=== PATIENT | female | born 1965 | race Two or more races ===

== ENCOUNTER → 2017-08-21 | Outpatient (CLI) | payer OTHER ==
[~2017-08-21] VITALS: Ht 152.4 cm; Wt 63.5 kg
[~2017-08-21] MED LIST: ACIDOPHILUS1 EAC3 PO; AMOX1TAB12 PO; CIPRO500 MG PO; CIPRO750 MG PO; DESPEC-DM TABL1 EAC1 PO; GILTUSS TR TAB1 EACH PO; NABUMETONE750 MG PO; TRAMADOL HCL50 MG PO; TRIAMCINOLONE A15 G1 TP; ZITHROMAX TRI-500 MG PO; ZYRTEC10 MG PO
== END | disposition home or self-care (01) ==
LOC: PPHC 09:24
DX: B34.9 Viral infection, unspecified (principal)

== ENCOUNTER → 2017-08-27 | Emergency (ER) | payer OTHER ==
[~2017-08-27] VITALS: Ht 152.4 cm; Wt 63.5 kg
== END | disposition home or self-care (01) ==
LOC: ER 18:35
DX: J32.0 Chronic maxillary sinusitis (principal); J06.9 Acute upper respiratory infection, unspecified

== ENCOUNTER 2018-08-22 07:25 | Outpatient (CLI) | payer OTHER | END 2018-08-22 07:32 | disposition home or self-care (01) | LOC: LAB 07:25 | DX: R51 Headache (principal); R42 Dizziness and giddiness ==

== ENCOUNTER 2018-08-27 08:00 | Outpatient (CLI) | payer OTHER | END 2018-08-27 08:20 | disposition home or self-care (01) | LOC: RX STUDY 08:00 | DX: M54.89 Other dorsalgia (principal); M25.562 Pain in left knee ==

== ENCOUNTER 2018-09-09 14:28 | Outpatient (CLI) | payer OTHER | END 2018-09-09 14:38 | disposition home or self-care (01) | LOC: MAMO-SONO 14:28 | DX: N64.4 Mastodynia (principal); Z12.31 Encounter for screening mammogram for malignant neoplasm of breast ==

== ENCOUNTER 2019-02-12 14:11 | Emergency (ER) | payer OTHER ==
[~2019-02-12] VITALS: Ht 152.4 cm; Wt 68.0 kg
[2019-02-12] MEDS ORDERED: KETO10TA2 PO (17:27)
[2019-02-12] MEDS ORDERED: ORPHENADRINE C100 MG PO (17:27)
[2019-02-12] MEDS ORDERED: MAPAP500 MG (23:21)
== END 2019-02-12 18:05 | disposition home or self-care (01) ==
LOC: ER 14:11
DX: M79.18 Myalgia, other site (principal); B34.9 Viral infection, unspecified

== ENCOUNTER 2019-04-24 21:01 | Emergency (ER) | payer OTHER ==
[~2019-04-24] VITALS: Ht 152.4 cm; Wt 65.8 kg
[~2019-04-24 21:01] MED LIST changes: +KETO10TA2 PO; +MAPAP500 MG; +ORPHENADRINE C100 MG PO
== END 2019-04-25 01:45 | disposition home or self-care (01) ==
LOC: ER 21:01
DX: S91.352A Open bite, left foot, initial encounter (principal); W54.0XXA Bitten by dog, initial encounter; Y93.89 Activity, other specified; Y92.89 Other specified places as the place of occurrence of the external cause; Y99.8 Other external cause status

== ENCOUNTER 2019-05-20 11:02 | Outpatient (CLI) | payer OTHER | END 2019-05-20 11:07 | disposition home or self-care (01) | LOC: LAB 11:02 | DX: E78.49 Other hyperlipidemia (principal); E55.9 Vitamin D deficiency, unspecified; Z00.00 Encounter for general adult medical examination without abnormal findings; R42 Dizziness and giddiness; M25.50 Pain in unspecified joint ==

== ENCOUNTER 2019-05-27 07:36 | Outpatient (CLI) | payer OTHER | END 2019-05-27 07:44 | disposition home or self-care (01) | LOC: RAD 07:36 | DX: E11.9 Type 2 diabetes mellitus without complications (principal); M79.7 Fibromyalgia; M54.2 Cervicalgia; M54.5 Low back pain; M54.6 Pain in thoracic spine ==

== ENCOUNTER 2019-05-27 09:22 | Outpatient (CLI) | payer OTHER | END 2019-05-27 09:27 | disposition home or self-care (01) | LOC: SONOGRAMA 09:22 | DX: E03.8 Other specified hypothyroidism (principal) ==

== ENCOUNTER 2019-07-25 07:41 | Outpatient (CLI) | payer OTHER | END 2019-07-25 15:00 | disposition home or self-care (01) | LOC: LAB 07:41 | DX: G47.09 Other insomnia (principal); R51 Headache; R53.83 Other fatigue; E03.8 Other specified hypothyroidism ==

== ENCOUNTER → 2019-08-12 08:52 | Outpatient (CLI) | payer OTHER | END | disposition home or self-care (01) | LOC: LAB 08:52 | DX: R76.0 Raised antibody titer (principal); M33.22 Polymyositis with myopathy; R74.0 Nonspecific elevation of levels of transaminase and lactic acid dehydrogenase [LDH]; D51.8 Other vitamin B12 deficiency anemias ==

== ENCOUNTER 2019-08-24 13:31 | Outpatient (CLI) | payer OTHER | END 2019-08-24 13:45 | disposition home or self-care (01) | LOC: NUCLEAR 13:31 | DX: M81.0 Age-related osteoporosis without current pathological fracture (principal) ==

== ENCOUNTER 2019-08-30 07:30 | Outpatient (CLI) | payer OTHER | END 2019-08-30 07:54 | disposition home or self-care (01) | LOC: NUCLEAR 07:30 | DX: M46.1 Sacroiliitis, not elsewhere classified (principal); M54.89 Other dorsalgia | CPT/HCPCS: 78315; A9503 ==

== ENCOUNTER 2019-09-11 08:39 | Outpatient (CLI) | payer OTHER | END 2019-09-11 08:45 | disposition home or self-care (01) | LOC: MAMO-SONO 08:39 | DX: Z12.31 Encounter for screening mammogram for malignant neoplasm of breast (principal); Z87.898 Personal history of other specified conditions; M15.8 Other polyosteoarthritis; N64.4 Mastodynia ==

== ENCOUNTER → 2020-04-03 08:04 | Outpatient (CLI) | payer OTHER | END | disposition home or self-care (01) | LOC: LAB 08:04 | PROVIDERS: ATTEND Ophthalmology | DX: I10 Essential (primary) hypertension (principal); D68.0 Von Willebrand disease ==

== ENCOUNTER 2020-04-03 09:18 | Outpatient (CLI) | payer OTHER | END 2020-04-03 09:20 | disposition home or self-care (01) | LOC: RAD 09:18 | PROVIDERS: ATTEND Ophthalmology | DX: R07.89 Other chest pain (principal) ==

== ENCOUNTER → 2020-09-12 | Outpatient (CLI) | payer OTHER | END | disposition home or self-care (01) | LOC: RAD 09:45 | DX: M79.671 Pain in right foot (principal); M79.672 Pain in left foot ==

== ENCOUNTER 2020-12-14 08:02 | Outpatient (CLI) | payer OTHER | END 2020-12-14 08:15 | disposition home or self-care (01) | LOC: LAB 08:02 | DX: R53.81 Other malaise (principal); R42 Dizziness and giddiness; Z20.822 Contact with and (suspected) exposure to COVID-19 ==

== ENCOUNTER 2021-01-22 07:27 | Outpatient (CLI) | payer OTHER | END 2021-01-22 07:31 | disposition home or self-care (01) | LOC: SONOGRAMA 07:27 → MAMO-SONO 07:30 → SONOGRAMA 07:31 | PROVIDERS: ATTEND Obstetrics & Gynecology | DX: R10.13 Epigastric pain (principal) ==

== ENCOUNTER → 2021-03-06 07:33 | Outpatient (CLI) | payer OTHER | END | disposition home or self-care (01) | LOC: LAB 07:33 | PROVIDERS: ATTEND Obstetrics & Gynecology | DX: N95.1 Menopausal and female climacteric states (principal); R89.1 Abnormal level of hormones in specimens from other organs, systems and tissues; E03.8 Other specified hypothyroidism; D64.89 Other specified anemias; E55.9 Vitamin D deficiency, unspecified; E78.49 Other hyperlipidemia; M81.6 Localized osteoporosis [Lequesne]; I10 Essential (primary) hypertension; R73.01 Impaired fasting glucose; Z12.31 Encounter for screening mammogram for malignant neoplasm of breast ==

== ENCOUNTER 2021-03-06 08:34 | Outpatient (CLI) | payer OTHER | END 2021-03-06 08:37 | disposition home or self-care (01) | LOC: MAMO-SONO 08:34 | PROVIDERS: ATTEND Family Medicine | DX: R92.0 Mammographic microcalcification found on diagnostic imaging of breast (principal); Z12.31 Encounter for screening mammogram for malignant neoplasm of breast; N64.59 Other signs and symptoms in breast ==

== ENCOUNTER 2021-04-08 07:23 | Outpatient (CLI) | payer OTHER | END 2021-04-08 07:24 | disposition home or self-care (01) | LOC: LAB 07:23 | PROVIDERS: ATTEND Obstetrics & Gynecology | DX: N95.1 Menopausal and female climacteric states (principal); R89.1 Abnormal level of hormones in specimens from other organs, systems and tissues; E03.8 Other specified hypothyroidism; D64.89 Other specified anemias; E55.9 Vitamin D deficiency, unspecified; E78.49 Other hyperlipidemia; M81.6 Localized osteoporosis [Lequesne] ==

== ENCOUNTER → 2021-04-29 07:40 | Outpatient (CLI) | payer OTHER | END | disposition home or self-care (01) | LOC: LAB 07:40 | PROVIDERS: ATTEND Internal Medicine Cardiovascular Disease | DX: I10 Essential (primary) hypertension (principal); E66.8 Other obesity; Z13.6 Encounter for screening for cardiovascular disorders ==

== ENCOUNTER 2021-07-29 11:01 | Emergency (ER) | payer OTHER ==
[~2021-07-29] VITALS: Ht 152.4 cm; Wt 68.0 kg
[2021-07-29] MEDS ORDERED: ZANAFLEX4 M1 PO (14:57)
[2021-07-29] MEDS ORDERED: KETO10TA2 PO (14:57)
[2021-07-29] MEDS ORDERED: MUPIROCIN22 GM TOP (15:02)
== END 2021-07-29 15:15 | disposition home or self-care (01) ==
LOC: ER 11:01
DX: M25.50 Pain in unspecified joint (principal)

== ENCOUNTER 2021-07-30 09:38 | Outpatient (CLI) | payer OTHER ==
[~2021-07-30 09:38] MED LIST changes: +MUPIROCIN22 GM TOP; +ZANAFLEX4 M1 PO
== END 2021-07-30 09:43 | disposition home or self-care (01) ==
LOC: LAB 09:38
PROVIDERS: ATTEND General Practice
DX: Z00.00 Encounter for general adult medical examination without abnormal findings (principal); E78.49 Other hyperlipidemia; E55.9 Vitamin D deficiency, unspecified; N64.4 Mastodynia; R42 Dizziness and giddiness; R10.2 Pelvic and perineal pain

== ENCOUNTER 2021-07-30 10:43 | Outpatient (CLI) | payer OTHER | END 2021-07-30 10:50 | disposition home or self-care (01) | LOC: SONOGRAMA 10:43 | PROVIDERS: ATTEND General Practice | DX: N64.4 Mastodynia (principal) ==

== ENCOUNTER 2021-09-25 10:54 | Outpatient (CLI) | payer OTHER | END 2021-09-25 11:17 | disposition home or self-care (01) | LOC: SONOGRAMA 10:54 | PROVIDERS: ATTEND General Practice | DX: R10.2 Pelvic and perineal pain (principal); R31.9 Hematuria, unspecified ==

== ENCOUNTER 2021-10-04 08:42 | Outpatient (CLI) | payer OTHER | END 2021-10-04 08:43 | disposition home or self-care (01) | LOC: LAB 08:42 | PROVIDERS: ATTEND Internal Medicine Cardiovascular Disease | DX: D64.9 Anemia, unspecified (principal); N39.0 Urinary tract infection, site not specified; R10.9 Unspecified abdominal pain; E78.5 Hyperlipidemia, unspecified; E11.9 Type 2 diabetes mellitus without complications; I10 Essential (primary) hypertension; Z13.6 Encounter for screening for cardiovascular disorders ==

== ENCOUNTER 2022-03-03 14:09 | Outpatient (CLI) | payer OTHER | END 2022-03-03 14:13 | disposition home or self-care (01) | LOC: LAB 14:09 | PROVIDERS: ATTEND General Practice | DX: R05.9 Cough, unspecified (principal); R50.9 Fever, unspecified; R06.02 Shortness of breath; Z20.822 Contact with and (suspected) exposure to COVID-19 ==

== ENCOUNTER 2022-04-09 06:58 | Outpatient (CLI) | payer OTHER | END 2022-04-09 06:59 | disposition home or self-care (01) | LOC: LAB 06:58 | PROVIDERS: ATTEND Internal Medicine Cardiovascular Disease | DX: D64.9 Anemia, unspecified (principal); R10.9 Unspecified abdominal pain; E03.9 Hypothyroidism, unspecified; E78.5 Hyperlipidemia, unspecified; E55.9 Vitamin D deficiency, unspecified; R80.9 Proteinuria, unspecified ==

== ENCOUNTER 2022-04-11 09:12 | Outpatient (CLI) | payer OTHER | END 2022-04-11 23:00 | disposition home or self-care (01) | LOC: LAB 09:12 | PROVIDERS: ATTEND Internal Medicine Cardiovascular Disease | DX: D64.9 Anemia, unspecified (principal); R10.9 Unspecified abdominal pain; E03.9 Hypothyroidism, unspecified; E78.5 Hyperlipidemia, unspecified; D55.9 Anemia due to enzyme disorder, unspecified; R80.9 Proteinuria, unspecified ==

== ENCOUNTER 2022-10-23 10:37 | Outpatient (CLI) | payer OTHER | END 2022-10-23 11:00 | disposition home or self-care (01) | LOC: RAD 10:37 | DX: R13.14 Dysphagia, pharyngoesophageal phase (principal) ==